=== PATIENT | female | born 1975 | race Caucasian/White ===

== ENCOUNTER 2023-08-22 20:56 | Emergency (ER) | payer OTHER, SELFPAY ==
[2023-08-22 21:06] VITALS: BP 162/94; PULSE 101; RESP 20; TEMP 36; O2SAT 100; BMI 20.2
[2023-08-22] MEDS: Fluorescein Sodium STRIP 1 STRIP EYE-BOTH (21:59)
[2023-08-22] MEDS: Tetracaine HCl 0.5% Oph Sol 5 ML DROPS 1 DROP EYE-BOTH (21:59)
--- NOTE | 2023-08-22 22:00 | ED.EYEPROB ---
HPI - Eye Problem General Chief complaint: Eye Problems Stated complaint: both eyes/bothered by contacts Time Seen by Provider: 08/22/23 21:41 Source: patient Mode of arrival: ambulatory Limitations: no limitations History of Present Illness ED Provider: hebert SALMERON Narrative: Patient wears contact lenses which she changes every month last time she changed was a week ago today around 11:00 patient noticed some discomfort in both eyes so she removed the lenses at 16:00 since then feeling burning sensation in both eyes unable to open the eyes Related Data Previous Rx's ?Medication ?Instructions ?Recorded ciprofloxacin HCl 0.3 % eye drops See Rx Instructions ophthalmic 08/22/23 (eye) .COMPLEX #5 mL ketotifen fumarate 0.025 % (0.035 1 drp ophthalmic (eye) BID PRN 08/22/23 %) eye drops ([place]) pain #5 mL Allergies Allergy/AdvReac Type Severity Reaction Status Date / Time No Known Allergies Allergy Verified 08/22/23 21:06 Review of Systems Review of Systems: Yes all other systems are reviewed and are negative [facility] Social History Social History Smoked in Last 30 Days: No Use of substances other than those prescribed or required for medical reasons: No Advance Directives: No Advance Directives Information Provided: No Do you have a plan to hurt others: No Plan Patient : No Physical Exam Vital Signs: Vital Signs: Last Vital Signs Temp 98 F 08/22/23 22:37 Pulse 97 08/22/23 22:37 Resp 20 08/22/23 22:37 BP 158/88 H 08/22/23 22:37 Pulse Ox 100 08/22/23 22:37 O2 Del Method Room Air 08/22/23 22:37 BMI result Body Mass Index 20.2 Appearance: Alert. Oriented X3. No acute distress. Eyes: Bilateral conjunctival inflammation fluorescein test negative for abrasion cornea normal ENT: Pharynx normal. Oral Mucosa moist Neck: Normal inspection. Neck supple. CVS: Normal heart rate and rhythm. Pulses normal. Respiratory: No respiratory distress. Equal air entry bilateral, Abdomen: Soft and nontender. Skin: Skin warm and dry. Normal skin color. Normal skin turgor. Medications Administered Discontinued Medications Generic Name Dose Route Start Last Admin Trade Name Freq PRN Reason Stop Dose Admin Acetaminophen 975 mg 08/22/23 22:02 08/22/23 22:08 Acetaminophen 325 Mg Tablet PO 08/22/23 22:03 975 mg ONCE ONE Administration Fluorescein Sodium 1 strip 08/22/23 21:37 08/22/23 21:59 Fluorescein Sodium Strip EYE-BOTH 08/22/23 21:38 1 strip ONCE ONE Administration Ibuprofen 400 mg 08/22/23 22:02 08/22/23 22:08 Ibuprofen 400 Mg Tablet PO 08/22/23 22:03 400 mg ONCE ONE Administration Tetracaine HCl 1 drop 08/22/23 21:37 08/22/23 21:59 Tetracaine Hcl 0.5% Oph Lisa 5 Ml Drops EYE-BOTH 08/22/23 21:38 1 drop ONCE ONE Administration Tobramycin Sulfate 2 drop 08/22/23 22:00 08/22/23 22:09 Tobramycin Sulfate 0.3% Lisa Op 5 Ml Btl EYE-BOTH 08/22/23 22:01 2 drop ONCE ONE Administration Medical Decision Making Medical Decision Making MDM Narrative: Patient's with bilateral contact lens conjunctivitis will prescribe Cipro eyedrops and ketotifen for pain no abrasion noticed no fungal infection noticed Differential Diagnosis Differential Diagnoses: The differential diagnosis associated with the presentation includes Corneal abrasion/corneal infection Discharge Plan Discharge Clinical Impression: Bacterial conjunctivitis Patient Disposition: Home, Self-Care Instructions: Conjunctivitis (ED) Additional Instructions: Do not use contact lens until completely healed Eyedrops as prescribed Report to the ER/PCP if worsening of the pain Prescriptions: New ciprofloxacin HCl 0.3 % drops See Rx Instructions .ROUTE .COMPLEX Qty: 5 0RF Rx Instructions: put 1-2 drps in affected eye(s) every 2hr up to 8 times/day x2days; then 4 times/day x5days ketotifen fumarate [[place]] 0.025 % (0.035 %) drops 1 drp ophthalmic (eye) BID PRN (Reason: pain) Qty: 5 0RF Rx Instructions: administer at least 8 hours apart Interventions: ED Discharge Assessment Last Done: 08/22/23 22:37 Discharge Date/Time: 08/22/23 22:38 Print Language: Green[place]ic
[2023-08-22] MEDS: Ibuprofen 400 MG TABLET PO (22:08)
[2023-08-22] MEDS: Acetaminophen 325 MG TABLET 975 MG PO (22:08)
[2023-08-22] MEDS: Tobramycin Sulfate 0.3% Sol Op 5 ML BTL 2 DROP EYE-BOTH (22:09)
[2023-08-22 22:37] VITALS: BP 158/88; PULSE 97; RESP 20; TEMP 36.6; O2SAT 100
== END 2023-08-22 22:38 | disposition home or self-care (01) ==
PROVIDERS: Emergency Provider Internal Medicine
DX: H10.33 Unspecified acute conjunctivitis, bilateral (principal)
CPT/HCPCS: 99283; 99284